=== PATIENT | female | born 1945 | race Caucasian/White ===

== ENCOUNTER 2017-01-27 12:33 | Emergency (ER) | payer OTHER, BC ==
[~2017-01-27] VITALS: Ht 154.9 cm; Wt 80.7 kg
[~2017-01-27 12:33] MED LIST: ADVAIR 250/501 DISK IH; CLARITIN,ALAVAR10 MG PO; Levothroid,Synthroid PO; PREDNISONE50 MG PO; Prilosec PO; ROBITUSSIN AC,T10 ML PO
[2017-01-27 13:28] LABS: ADD MIUA? NO; BILIRUBIN NEGATIVE; BLOOD NEGATIVE; COLOR STRAW ((YELLOW)); GLUCOSE (STRIP) NEGATIVE; KETONES NEGATIVE; LEUKOCYTES NEGATIVE; NITRITE NEGATIVE; PROTEIN (STRIP) NEGATIVE; SPECIFIC GRAVITY 1.006 (1.000-1.030); UCUL ADDED? NO; UROBILINOGEN 0.2 MG/DL (0.2-1.0)
[2017-01-27] MEDS ORDERED: ULTRAM50 MG PO (16:22)
[2017-01-27] MEDS ORDERED: FLEXERIL10 MG PO (16:22)
[2017-01-27 16:40] VITALS: BP 165/94
== END 2017-01-27 16:41 | disposition home or self-care (01) ==
LOC: EME 12:33
PROVIDERS: Emergency Medicine
DX: S39.012A Strain of muscle, fascia and tendon of lower back, initial encounter (principal); X50.9XXA Other and unspecified overexertion or strenuous movements or postures, initial encounter; J45.909 Unspecified asthma, uncomplicated; E03.9 Hypothyroidism, unspecified; Z88.5 Allergy status to narcotic agent; Z88.6 Allergy status to analgesic agent; Z88.1 Allergy status to other antibiotic agents
CPT/HCPCS: 72100; 81003; 99281; 99284; J3010